=== PATIENT | male | born 1970 | race Caucasian/White ===

== ENCOUNTER 2023-03-24 12:45 | Inpatient (IN) | payer MEDICAID, SELFPAY ==
[2023-03-24 12:48] VITALS: BP 125/76; PULSE 99; RESP 18; TEMP 36.8; O2SAT 92; BMI 26.4
[2023-03-24 13:35] LABS: Basophils # 0.1 10^3/uL (0.0-0.1); Basophils % 0.8 %; Eosinophils # 0.1 10^3/uL (0.0-0.8); Eosinophils % 0.8 %; Hematocrit 35.4 % (37-53); Lymphocytes # 0.9 10^3/uL (0.8-4.8); Lymphocytes % 12.4 %; Mean Corpuscular HGB Conc 33.6 g/dL (30-55); Mean Corpuscular Hemoglobin 35.8 pg (27-33); Mean Corpuscular Volume 106.6 fl (82-101); Mean Platelet Volume 9.2 fL (7.4-10.4); Monocytes # 0.9 10^3/uL (0.2-0.9); Monocytes % 11.9 %; Neutrophils # 5.51 10^3/uL (1.8-7.7); Neutrophils % 73.8 %; Nucleated Red Blood Cells % 0 %; Platelet Count 125 10^3/cmm (157-399); Red Blood Count 3.32 10^6/uL (3.85-5.65); White Blood Count 7.47 10^3/uL (3.29-11.43)
--- NOTE | 2023-03-24 13:38 | PC.PHAR ---
CAREGIVER HAS MED LIST FROM HOSPITAL DISCHARGE IN [place]. PT HAS TAKEN IS MEDS TODAY. 03/24/23
--- NOTE | 2023-03-24 13:49 | ED_ITS ---
HPI - Weakness 2 General: Chief complaint: Weakness Stated complaint: leg pain, yellow skin Time Seen by Provider: 03/24/23 13:04 Source: patient Mode of arrival: ambulatory Limitations: no limitations History of Present Illness: 53-year-old male with a history of chron ic alcoholism states he was diagnosed with severe cirrhosis in [place] last week family states that they went and picked him up from [place] to take care of him they state that he has had increasing weakness and that they are not really able to care for him and try to get him placed in a long-term he states that he feels like he is getting more jaundiced and just more weak denies any specific pain denies any vomiting or diarrhea Associated symptoms: Denies chest pain, chills, fever(s), headache(s), nausea or vomiting Review of Systems 2 Const: Reports: fatigue and malaise; Denies: fever(s), chills or body aches ENMT: Denies: throat pain or dental pain Card: Denies: chest pain Resp: Denies: dyspnea GI: Denies: abdominal pain, nausea, vomiting or diarrhea Musc: Denies: neck pain or back pain Skin/Breast: Denies: rash Neuro: Denies: headache(s) Physical Exam 2 Const: COMMON NORMALS: no acute distress, patient oriented x3 and healthy appearing HENMT: COMMON NORMALS: normocephalic and atraumatic HEAD & SCALP: n ormocephalic and atraumatic Eye: COMMON NORMALS: Equal, round and reactive pupils present and EOMs intact bilaterally PUPIL: Yes Equal, round and reactive pupils present Neck/C-Spine: COMMON NORMALS: full ROM and supple Chest: COMMONS NORMALS: normal inspection of the chest and normal palpation of entire chest wall Resp: COMMON NORMALS: normal respiratory effort, No retractions, No use of accessory muscles and clear to auscultation bilaterally AUSCULTATION: clear to auscultation bilaterally Cardio: COMMON NORMALS: regular rate, regular rhythm and No murmurs present (Cardio) RATE: regular rate RHYTHM: regular rhythm GI: COMMON NORMALS: Normal to inspection, nondistended, normoactive bowel sounds present, Soft to palpation, non-tender and no masses PALPATION: Yes Soft to palpation Extremity: COMMON NORMALS: normal to inspection and full ROM Neuro: COMMON NORMALS: patient oriented x3, moves all extremities and no focal motor deficits Psych: COMMON NORMALS: mental status grossly normal, Normal thought process present and cooperative THOUGHT PROCESS: Normal thought process present Skin: COMMON NORMALS: no rashes or lesions noted and no wounds GENERAL SKIN EXAM: no rashes or lesions noted Course 2 Vital Signs: Vital signs: Vital Signs Temperature 98.3 F 03/24/23 12:48 Pulse Rate 99 03/24/23 12:48 Respiratory Rate 18 03/24/23 12:48 Blood Pressure 125/76 03/24/23 12:48 Pulse Oximetry 92 03/24/23 12:48 Oxygen Delivery Me thod Room Air 03/24/23 12:48 MDM - Weakness Medical Decision Making Patient presents here with cirrhosis he also has elevated ammonia he has had weakness could be from his hepatic encephalopathy family is wanting long-term placement as well I did speak to hospitalist will admit medically due to the elevated ammonia he stable here otherwise. No renal failure. Medical Records I reviewed the patient's medical records. Lab Data I reviewed the patient's lab results. 03/24/23 13:25 03/24/23 13:25 Laboratory Results WBC 7.47 10^3/uL (3.29-11.43) 03/24/23 13:25 RBC 3.32 10^6/uL (3.85-5.65) L 03/24/23 13:25 Hgb 11.90 g/dL (11.27-16.99) 03/24/23 13:25 Hct 35.4 % (37-53) L 03/24/23 13:25 MCV 106.6 fl (82-101) H 03/24/23 13:25 MCH 35.8 pg (27-33) H 03/24/23 13:25 MCHC 33.6 g/dL (30-55) 03/24/23 13:25 RDW 18.0 % (12.1-15.1) H 03/24/23 13:25 Plt Count 125 10^3/cmm (157-399) L 03/24/23 13:25 MPV 9.2 fL (7.4-10.4) 03/24/23 13:25 Neut % (Auto) 73.8 % 03/24/23 13:25 Lymph % (Auto) 12.4 % 03/24/23 13:25 [place] % (Auto) 11.9 % 03/24/23 13:25 Eos % (Auto) 0.8 % 03/24/23 13:25 Baso % (Auto) 0.8 % 03/24/23 13:25 Neut # (Auto) 5.51 10^3/uL (1.8-7.7) 03/24/23 13:25 Lymph # (Auto) 0.9 10^3/uL (0.8-4.8) 03/24/23 13:25 [place] # (Auto) 0.9 10^3/uL (0.2-0.9) 03/24/23 13:25 Eos # (Auto) 0.1 10^3/uL (0.0-0.8) 03/24/23 13:25 Baso # (Auto) 0.1 10^3/uL (0.0-0.1) 03/24/23 13:25 Nucleated RBC % (auto) 0 % 03/24/23 13:25 Nucleated RBCs # 0.0 /100WBC 03/24/23 13:25 Sodium 134 mmol/L (136-145) L 03/24/23 13:25 Potassium 3.8 mmol/L (3.5-5.1) 03/24/23 13:25 Chloride 97 mmol/L (98-107) L 03/24/23 13:25 Carbon Dioxide 23 mmol/L (22-29) 03/24/23 13:25 Anion Gap 17.8 (5-19) 03/24/23 13:25 BUN 18 mg/dL (6-20) 03/24/23 13:25 Creatinine 0.8 mg/dL (0.7-1.2) 03/24/23 13:25 GFR Calculation 101.1 mL/min (90-130) 03/24/23 13:25 Glucose 123 mg/dL (65-115) H 03/24/23 13:25 Calculated Osmolality 281 mOsm/kg (285-295) L 03/24/23 13:25 Calcium 8.6 mg/dL (8.5-10.5) 03/24/23 13:25 Total Bilirubin 6.6 mg/dL (0.15-1.2) H 03/24/23 13:25 AST 94 U/L (0-40) H 03/24/23 13:25 ALT 39 U/L (0-41) 03/24/23 13:25 Alkaline Phosphatase 87 U/L (40-130) 03/24/23 13:25 Ammonia 170 umol/L (16-60) H 03/24/23 13:25 Total Protein 6.7 g/dL (6.6-8.7) 03/24/23 13:25 Albumin 3.4 g/dL (3.5-5.2) L 03/24/23 13:25 Globulin 3.3 g/dL (1.3-4.6) 03/24/23 13:25 Lipase 75 U/L (13-60) H 03/24/23 13:25 Urine Color [place] (Yellow) A 03/24/23 13:05 Urine Appearance Clear (CLEAR) 03/24/23 13:05 Urine pH 5 (5-7) 03/24/23 13:05 Ur Specific [place] 1.005 (1.005-1.030) 03/24/23 13:05 Urine Protein 1+ (Negative) H 03/24/23 13:05 Urine Glucose (UA) Norm (Normal) 03/24/23 13:05 Urine Ketones 1+ (Negative) H 03/24/23 13:05 Urine Blood Neg (Negative) 03/24/23 13:05 Urine Nitrate Positive (Negative) H 03/24/23 13:05 Urine Bilirubin 2+ (Negative) H 03/24/23 13:05 Urine Urobilinogen 4+ mg/dL (Negative) H 03/24/23 13:05 Ur Leukocyte Esterase Trace (Negative) H 03/24/23 13:05 Urine RBC 0-4 /hpf (0-2) H 03/24/23 13:05 Urine WBC 0-4 /hpf (0-5) H 03/24/23 13:05 Ur Squamous Epith Cells 0-4 /hpf (0-5) H 03/24/23 13:05 Amorphous Sediment Not Reportable 03/24/23 13:05 Urine Bacteria Trace /hpf (NONE) 03/24/23 13:05 Urine Mucus Trace /hpf 03/24/23 13:05 No radiology studies performed this visit Discharge Plan Discharge Patient Disposition: Admitted As Inpatient Clinical Impression: Cirrhosis, Acute hepatic encephalopathy Condition: Stable Prescriptions: No Action multivitamin Tablet 1 tab PO DAILY furosemide 40 mg Tablet 40 mg PO DAILY spironolactone 100 mg Tablet 100 mg PO DAILY midodrine 5 mg Tablet 5 mg PO BID Rx Instructions: do not give last dose of day after 6PM or within 4 hrs of bedtime folic acid 1 mg Tablet 1 mg PO QAM thiamine HCl (vitamin B1) 50 mg Tablet 50 mg PO DAILY oxycodone 5 mg Tablet 5 mg PO Q8H PRN (Reason: Pain) lactulose 10 gram/15 mL Solution 15 ml PO BID PRN (Reason: Constipation) Coding Level of Care Code ED Statistical Developer for Yanet Montes
[2023-03-24 13:51] LABS: Alanine Aminotransferase 39 U/L (0-41); Albumin Level 3.4 g/dL (3.5-5.2); Alkaline Phosphatase 87 U/L (40-130); Anion Gap 17.8 (5-19); Aspartate Amino Transferase 94 U/L (0-40); Blood Urea Nitrogen 18 mg/dL (6-20); Calcium 8.6 mg/dL (8.5-10.5); Carbon Dioxide 23 mmol/L (22-29); Chloride 97 mmol/L (98-107); Globulin 3.3 g/dL (1.3-4.6); Glomerular Filtration Rate 101.1 mL/min (90-130); Glucose 123 mg/dL (65-115); Lipase 75 U/L (13-60); Osmolality Calculated 281 mOsm/kg (285-295); Potassium 3.8 mmol/L (3.5-5.1); Sodium 134 mmol/L (136-145); Total Bilirubin 6.6 mg/dL (0.15-1.2); Total Protein 6.7 g/dL (6.6-8.7)
[2023-03-24 13:55] LABS: Ammonia 170 umol/L (16-60)
[2023-03-24 14:06] LABS: Specific Gravity, Urine 1.005 (1.005-1.030); Urine Appearance Clear (CLEAR); Urine Color Orange (Yellow); pH Urine 5 (5-7)
[2023-03-24 14:07] LABS: Add Urine Microscopic? YES; Bilirubin Urine 2+ (Negative); Blood Urine Neg (Negative); Glucose Urine UA Norm (Normal); Ketones Urine 1+ (Negative); Leukocyte Esterase Urine Trace (Negative); Nitrate Urine Positive (Negative); Protein Urine 1+ (Negative); Urobilinogen Urine 4+ mg/dL (Negative)
[2023-03-24 14:09] LABS: Add Urine Culture? No; Bacteria Urine TRACE /hpf; Mucus Urine TRACE /hpf; RBC Urine 0-4 /hpf (0-2); Squamous Epithelial Cell Urine 0-4 /hpf (0-5); WBC Urine 0-4 /hpf (0-5)
--- NOTE | 2023-03-24 14:43 | PC.SOCIAL ---
Faxed [facility] DR Bautista asked that Cm follow up with pt & family that pt wants to go to a snf. [employer] followed up with pt & his sister Milady. She said they have already talked to [facility] & are willing to private pay. A choice letter filled out & placed in chart. Faxed ER note to [facility] & called & left a message on Hollie's voicemail updating her of the referral & that pt is wanting to come today. Asked that she call the ER back to let them know if they can accept.
--- NOTE | 2023-03-24 14:46 | P.HP_ITS ---
Providers/Chief Complaint 2 Chief Complaint: leg pain, yellow skin History of Present Illness Mariano Polanco is a 53 year old male who has recently moved from [place] to [place] 2 days ago with his sister, history is not able to take care of him, patient is very fatigued not cardiac, as per the sister there was no signs of SBP at the [facility], they drained roughly 1.5 L, patient's last alcoholic drink was roughly 7 days ago, he used to drink 6-12 beers daily, he has been diagnosed with liver cirrhosis he was discharged on lactulose folic acid Lasix and spironolactone, patient has not been taking his medications. Sister is struggling to take care of him because of his worsening of condition and confusion. No recent chest pain shortness of breath or fever. Patient is not vaccinated for COVID-19. He is full code. Signs of hepatic encephalopathy present, flapping tremors/asterixis positive, ammonia level is high, MELD score is high as well patient is jaundiced Review of Systems 2 Const: Denies: fever(s) Eyes: Denies: change in vision ENMT: Denies: throat pain Card: Denies: chest pain Resp: Denies: dyspnea GI: Reports: nausea : Denies: flank pain Musc: Denies: neck pain Skin/Breast: Reports: rash and changes in skin color Medications/Allergies Home Medications Medication Instructions Recorded Confirmed Last Taken Type folic acid 1 mg tablet 1 mg PO QAM 03/24/23 03/24/23 03/24/23 History furosemide 40 mg tablet 40 mg PO DAILY 03/24/23 03/24/23 03/24/23 History lactulose 10 gram/15 mL oral 15 ml PO BID PRN Constipation 03/24/23 03/24/23 Unknown History solution midodrine 5 mg tablet 5 mg PO BID 03/24/23 03/24/23 03/24/23 History multivitamin 1 tab PO DAILY 03/24/23 03/24/23 03/24/23 History oxycodone 5 mg tablet 5 mg PO Q8H PRN Pain 03/24/23 03/24/23 Unknown History spironolactone 100 mg tablet 100 mg PO DAILY 03/24/23 03/24/23 03/24/23 History thiamine HCl (vitamin B1) 50 mg 50 mg PO DAILY 03/24/23 03/24/2324 History tablet Allergies Allergy/AdvReac Type Severity Reaction Status Date / Time No Known Allergies Allergy Verified 03/24/23 12:57 PFSH Acute 2 PFSH: Medical History Alcoholic cirrhosis Vitals/I&O/Wt Last Vital Signs Temp 98.3 F 03/24/23 12:48 Pulse 99 03/24/23 12:48 Resp 18 03/24/23 12:48 BP 125/76 03/24/23 12:48 Pulse Ox 92 03/24/23 12:48 O2 Del Method Room Air 03/24/23 12:48 Weight last 48 hrs Weight 86.183 kg Physical Exam 2 Narrative: Patient is jaundiced Ascites Prominent veins Anasarca GCS 15 Currently on room air No active chest pain Currently doing well on room air Sisters at the bedside Asterixis positive Nonfocal neuroexam Data 03/24/23 13:25 03/24/23 13:25 A&P Assessment and plan (1) Cirrhosis: (2) Acute hepatic encephalopathy: Plan Acute hepatic encephalopathy Lactulose and rifaximin Start ceftriaxone 2 g daily Protonix Will request general surgery to see if patient could get a peritoneal drain He is not a candidate for TIPS procedure as of now his last alcoholic drink was a week ago He will need hepatic transplant evaluation once he has alcoholic abstinence for roughly 6 months Will need referral to [facility] at the time of discharge, most likely patient will need retirement placement considering his weakness Low-sodium diet Will give him albumin as well Continue Lasix and spironolactone along midodrine MELD score 16.2 I do not have his PT/INR will request coagulation profile Full code Related diet DVT prophylaxis heparin Attestations 2 Medical Necessity Statement*: Anticipating more than 2 midnights Diagnoses Cirrhosis K74.60 Acute hepatic encephalopathy K76.82
--- NOTE | 2023-03-24 15:04 | PC.SOCIAL ---
[facility] Pending... Arash Tried to follow up with Hollie at [facility] to see if they have review pt's referral. She was not available. Left a message with Klaudia. That pt is ready to d/c if they can accept. She said she will have Hollie follow up with the ER.
[2023-03-24 16:12] VITALS: BP 112/70; O2SAT 94
--- NOTE | 2023-03-24 16:13 | PC.NURSE ---
report called to Rajani on Med-Surg, no further questions at time of report.
[2023-03-24 16:20] LABS: Platelet Count 125 10^3/cmm (157-399)
[2023-03-24 16:25] LABS: Partial Thromboplastin Time 43.5 SECONDS (23.9-36.7)
[2023-03-24 16:26] LABS: Fibrinogen 154 mg/dL (174-498)
--- NOTE | 2023-03-24 16:39 | USCV_ITS ---
Mariano Polanco Age: 53 Gender: M : 1970 Exam Date: 03/24/2023 17:03 Ordering Phys: Gagan Lopez MD Technologist: CT Exam Location: [facility] [place] Indication: BP: 138 / 85 HR: 87 Rhythm: Sinus Technical Quality: Adequate MEASUREMENTS (Male / Female) Normal Values 2D ECHO LV Chamber Size 5.0 cm RV Chamber Size 4.1 cm LVOT Diameter 2.2 cm LV Ejection Fraction MOD 2C 58.0 % LV Ejection Fraction 2C AL 60.7 % LA Diameter 3.4 cm LA Width 4.6 cm LA Height 5.9 cm RA Width 4.3 cm RA Height 5.6 cm M-MODE Aortic Annulus Diameter 3.2 cm LA Ao Ratio MM 1.2 MV E Point Septal Separation 1.1 cm DOPPLER AV Peak Velocity 208.0 cm/s LVOT Peak Velocity 125.0 cm/s AV Area Cont Eq vti 2.6 cm squared AV Area Cont Eq pk 2.2 cm squared MV E' Velocity 11.0 cm/s TV Peak E Velocity 77.0 cm/s Right Atrial Pressure 3.0 mmHg PV Peak Velocity 156.0 cm/s FINDINGS Left Ventricle Left ventricle is normal in size. LV systolic function is normal with EF of 55-60%. Septal motion is consistent with conduction abnormality. Grade 1 diastolic dysfunction Right Ventricle Normal in size and function Right Atrium Normal in size Left Atrium Dilated Mitral Valve Structurally normal mitral valve. Mild mitral regurgitation. Aortic Valve Structurally normal aortic valve. No significant stenosis or regurgitation seen. Tricuspid Valve Mild tricuspid regurgitation. Pulmonic Valve Not well visualized Pericardium Normal Aorta Not well visualized IVC Not well visualized CONCLUSIONS LV systolic function is normal with EF 55 to 60%. Grade 1 diastolic dysfunction. Left atrial dilation. Mild mitral regurgitation. Mild tricuspid regurgitation. No comparison studies are available. Shiraz Rodriguez MD (Electronically Signed) Final Date: 25 March 2023 17:06 S
[2023-03-24] MEDS: midodrine 5 mg TABLET PO (17:53)
[2023-03-24] MEDS: pantoprazole 40 mg SDV IVP (17:53)
[2023-03-24] MEDS: heparin 5,000 unit/mL INJ 1 mL 5000 UNIT SUBCUT (17:53)
[2023-03-24 17:54] VITALS: RESP 16
[2023-03-24] MEDS: albumin 12.5 GM/250 ML VIAL IV (17:54)
[2023-03-24] MEDS: oxyCODONE 5 mg IR Tab/Cap PO (17:54)
[2023-03-24 18:02] VITALS: BMI 32.1
[2023-03-24 18:34] LABS: Thyroid Stimulating Hormone 3.14 uIU/mL (0.27-4.20)
[2023-03-24 20:00] VITALS: BP 105/66; PULSE 86; RESP 16; TEMP 36.8; O2SAT 93
[2023-03-24 23:53] VITALS: BP 110/70; PULSE 93; RESP 16; TEMP 37; O2SAT 92
[2023-03-25] VITALS (9 sets, daily range): BP systolic 107–131; BP diastolic 63–75; PULSE 80–92; RESP 14–17; TEMP 36.5–36.9; O2SAT 92–97; BMI 33.0
[2023-03-25] MEDS: heparin 5,000 unit/mL INJ 1 mL 5000 UNIT SUBCUT (04:08)
[2023-03-25 04:35] LABS: Basophils # 0.1 10^3/uL (0.0-0.1); Basophils % 0.9 %; Eosinophils # 0.2 10^3/uL (0.0-0.8); Eosinophils % 3.6 %; Hematocrit 32.9 % (37-53); Lymphocytes # 1.2 10^3/uL (0.8-4.8); Lymphocytes % 21.3 %; Mean Corpuscular Hemoglobin 35.8 pg (27-33); Mean Corpuscular Volume 105.1 fl (82-101); Mean Platelet Volume 9.5 fL (7.4-10.4); Monocytes # 0.8 10^3/uL (0.2-0.9); Monocytes % 14.3 %; Neutrophils # 3.33 10^3/uL (1.8-7.7); Neutrophils % 59.5 %; Nucleated Red Blood Cells % 0 %; Platelet Count 142 10^3/cmm (157-399); Red Blood Count 3.13 10^6/uL (3.85-5.65); Red Cell Distribution Width 18.4 % (12.1-15.1); White Blood Count 5.59 10^3/uL (3.29-11.43)
[2023-03-25 04:50] LABS: Alanine Aminotransferase 41 U/L (0-41); Albumin Level 3.3 g/dL (3.5-5.2); Alkaline Phosphatase 100 U/L (40-130); Anion Gap 15.8 (5-19); Aspartate Amino Transferase 96 U/L (0-40); Blood Urea Nitrogen 19 mg/dL (6-20); Calcium 8.6 mg/dL (8.5-10.5); Carbon Dioxide 24 mmol/L (22-29); Chloride 101 mmol/L (98-107); Glucose 111 mg/dL (65-115); Magnesium 1.9 mg/dL (1.7-2.3); Osmolality Calculated 287 mOsm/kg (285-295); Potassium 3.8 mmol/L (3.5-5.1); Sodium 137 mmol/L (136-145); Total Bilirubin 6.2 mg/dL (0.15-1.2); Total Protein 6.3 g/dL (6.6-8.7)
--- NOTE | 2023-03-25 07:48 | PC.NURSE ---
Patient only had 175 ml dark olu urine output last night, however he is also taking in very little PO. Dr. Lopez notified.
--- NOTE | 2023-03-25 09:50 | US_ITS ---
WS: [id number] INDICATION: Paracentesis TECHNIQUE: Ultrasound abdomen FINDINGS: Ultrasound abdomen demonstrates mild perihepatic ascites RIGHT upper quadrant about the [facility]. Minimal fluid LEFT lower quadrant. Insufficient fluid for paracentesis IMPRESSION: Insufficient fluid for paracentesis
[2023-03-25] MEDS: pantoprazole 40 mg SDV IVP ×2 (10:16→17:52)
[2023-03-25] MEDS: spironolactone 25 mg Tablet 100 MG PO (10:17)
[2023-03-25] MEDS: thiamine 100 mg Tablet PO (10:17)
[2023-03-25] MEDS: folic acid 1 mg Tablet PO (10:17)
[2023-03-25] MEDS: FUROsemide 40 mg Tablet PO (10:17)
[2023-03-25] MEDS: midodrine 5 mg TABLET PO ×2 (10:18→17:52)
[2023-03-25] MEDS: oxyCODONE 5 mg IR Tab/Cap PO ×2 (10:30→19:28)
--- NOTE | 2023-03-25 11:34 | P.CONIM_ITS ---
Providers/Reason For Consult 2 Consulting Physician/Specialty*: Dr. Saurabh Fregoso, DO/General surgery Reason for Consult*: Abdominal distention/ascites Attending Physician: Gagan Lopez MD History of Present Illness History of Present Illness Mariano Polanco is a 53 year old male, with known alcoholic liver cirrhosis, who is currently in the hospital with acute hepatic encephalopathy. HPI and review of systems are limited secondary to patient's encephalopathy. He reports that he has no pain but is not oriented to place. General surgery was consulted for possible peritoneal drainage catheter placement. Review of Systems 2 General: Reports: ROS unobtainable due to mental status Medications/Allergies Home Medications Medication Instructions Recorded Confirmed Last Taken Type folic acid 1 mg tablet 1 mg PO QAM 03/24/23 03/24/23 03/24/23 History furosemide 40 mg tablet 40 mg PO DAILY 03/24/23 03/24/23 03/24/23 History lactulose 10 gram/15 mL oral 15 ml PO BID PRN Constipation 03/24/23 03/24/23 Unknown History solution midodrine 5 mg tablet 5 mg PO BID 03/24/23 03/24/23 03/24/23 History multivitamin 1 tab PO DAILY 03/24/23 03/24/23 03/24/23 History oxycodone 5 mg tablet 5 mg PO Q8H PRN Pain 03/24/23 03/24/23 Unknown History spironolactone 100 mg tablet 100 mg PO DAILY 03/24/23 03/24/23 03/24/23 History thiamine HCl (vitamin B1) 50 mg 50 mg PO DAILY 03/24/23 03/24/23 03/24/23 History tablet Allergies Allergy/AdvReac Type Severity Reaction Status Date / Time No Known Allergies Allergy Verified 03/24/23 12:57 Current Medications Generic Name Dose Route Start Last Admin Trade Name Freq PRN Reason Stop Dose Admin Folic Acid 1 mg 03/25/23 09:00 03/26/23 08:42 Folic Acid 1 Mg Tablet PO 1 mg DAILY EDIE Administration Furosemide 40 mg 03/25/23 09:00 03/26/23 08:42 Furosemide 40 Mg Tablet PO 40 mg DAILY EDIE Administration Heparin Sodium (Porcine) 5,000 unit 03/24/23 16:39 03/25/23 04:08 Heparin 5,000 Unit/Ml Inj 1 Ml SUBCUT 5,000 unit Q12H EDIE Administration Ceftriaxone Sodium 2,000 mg/ 50 mls @ 100 mls/hr 03/25/23 11:15 03/26/23 11:13 Sodium Chloride IV Infused DAILY EDIE Infusion Protocol Midodrine 5 mg 03/24/23 18:00 03/26/23 10:21 Midodrine 5 Mg Tablet PO 5 mg BID EDIE Administration Oxycodone HCl 5 mg 03/24/23 16:39 03/26/23 06:16 Oxycodone 5 Mg Ir Tab/Cap PO 5 mg Q8H PRN Administration Pain Pantoprazole Sodium 40 mg 03/24/23 18:00 03/26/23 09:08 Pantoprazole 40 Mg Sdv IVP 40 mg BID EDIE Administration Prednisone 15 mg 03/26/23 09:00 03/26/23 08:42 Prednisolone 15 Mg/5 Ml Syringe PO 15 mg TID EDIE Administration Spironolactone 100 mg 03/25/23 09:00 03/26/23 08:43 Spironolactone 25 Mg Tablet PO 100 mg DAILY EDIE Administration Thiamine Mononitrate 100 mg 03/25/23 09:00 03/26/23 08:43 Thiamine 100 Mg Tablet PO 100 mg DAILY EDIE Administration PFSH Acute 2 PFSH: Medical History Alcoholic cirrhosis Vitals/I&O/Wt Last Vital Signs Temp 97.8 F 03/26/23 11:15 Pulse 91 03/26/23 11:15 Resp 16 03/26/23 11:15 BP 119/72 03/26/23 11:15 Pulse Ox 94 03/26/23 11:15 O2 Del Method Room Air 03/26/23 11:15 03/25/23 03/26/23 03/26/23 22:59 06:59 14:59 Intake Total 480 / 530 170 / 170 Output Total 200 / 200 125 / 325 Balance -200 / -150 355 / 205 170 / 170 Weight last 48 hrs Weight 257 lb 9.6 oz Weight 250 lb 6 oz Weight 190 lb Physical Exam 2 Narrative: General : Patient is well developed , no acute distress, oriented only to person and time Head : Normal cephalic, a-traumatic. Ears : Pinnae and external canal are normal. Hearing is normal. Eyes : PERRLA, Sclera and injection are normal. No conjunctival discharge. Nose : Mucous membranes are without erythema. Throat : buccal mucosa is normal, gums are without significant recession or hypertrophy. Lungs : Equal chest rise bilaterally, no use of accessory muscles, trachea is midline. Cor : Rate and rhythm are normal. Abdomen : Soft, marked distention, NT, no g/r/m Extremities : Minimal edema, no cyanosis or clubbing, dorsalis pedis pulses are present bilaterally, non-tender to palpation of calves. Upper extremities are normal bilaterally. Back : non-tender to palpation, no CVA tenderness. Neuro : CN II - XII intact, Upper and lower extremities have equal and full strength Data 03/26/23 05:32 03/26/23 05:32 A&P Assessment and plan (1) Acute hepatic encephalopathy: (2) Cirrhosis: Plan I recommend requesting paracentesis from radiology. I will be happy to place a peritoneal drainage catheter, if needed, after he has recovered medically from his acute withdrawal and encephalopathy. Medical management per hospitalist Coding Level of Care Code 14550 Diagnoses Acute hepatic encephalopathy K76.82 Cirrhosis K74.60
[2023-03-25] MEDS: cefTRIAXone 2,000 MG in sodium chloride 0.9% (plus) 50 ML 100 MG IV (11:39)
--- NOTE | 2023-03-25 11:39 | P.PN_ITS ---
Subjective 2 Subjective: MELD score is 22 Patient is not confused this morning We are holding off on peritoneal drain placement for now considering significant abdominal distention Will get paracentesis Requested records from outside facility Vitals/I&O/Wt Last Vital Signs Temp 98.0 F 03/25/23 07:47 Pulse 89 03/25/23 07:47 Resp 16 03/25/23 10:30 BP 112/66 03/25/23 07:47 Pulse Ox 92 03/25/23 07:47 O2 Del Method Room Air 03/25/23 07:47 03/24/23 03/25/23 03/25/23 22:59 06:59 14:59 Intake Total 250 / 250 50 / 300 Output Total 175 / 175 Balance 250 / 250 -125 / 125 Weight last 48 hrs Weight 116.845 kg Weight 113.568 kg Weight 86.183 kg Physical Exam 2 Narrative: Asterixis Abdominal distention No abdominal pain Currently on room air Pleasant and cooperative GCS 15 No active signs of hallucination or withdrawal S1, S2 Data 03/25/23 03:59 03/25/23 03:59 A&P Assessment and plan (1) Cirrhosis: (2) Acute hepatic encephalopathy: Plan MELD score is 22 Not a TIPS candidate We are holding off on peritoneal drain Will request therapeutic paracentesis Continue ceftriaxone Continue spironolactone Lasix No signs of hepatorenal syndrome Full code Will request records from outside facility INR 1.7 Sodium 137 Patient will need long-term placement extremely weak and lethargic Attestations 2 Medical Necessity Statement*: Continue medical management Diagnoses Cirrhosis K74.60 Acute hepatic encephalopathy K76.82
--- NOTE | 2023-03-25 13:06 | CT_ITS ---
WS: [id number] CT ABDOMEN AND PELVIS NONCONTRAST HISTORY: ascites TECHNIQUE: Imaging performed through the abdomen and pelvis. Coronal and sagittal reformats are submi tted. All CT scans at [facility] use at least one of these dose optimization techniques: auto mated exposure control; mA and/or kV adjustment per patient size (includes targeted exams where dose is matched to clinical indication); or iterative reconstruction. DLP: 1124.23 mGy.cm COMPARISON: None available. Lower thorax: Bibasilar areas of atelectasis. No pneumonia. Liver: Severe hepatic steatosis and mild hepatomegaly. No bile duct dilatation. There is variable den sity throughout the liver suggesting hepatic congestion. Gallbladder: Stones layering within the gallbladder lumen. No pericholecystic fluid. No obstruction. Pancreas: Normal size and attenuation. Normal pancreatic duct. No pancreatitis or mass. Spleen: Normal. Adrenal glands: Normal. No mass. Right kidney: Normal size kidney with no mass or hydronephrosis. Left kidney: Normal size kidney with no mass or hydronephrosis. Aorta: Normal abdominal aorta, no aneurysm or atherosclerosis. There is a small amount of fluid adjacent to the liver and spleen. Minimal fluid along the paracolic gutters. GI tract: Stomach is nondistended. There is a small amount of fluid in the small bowel loops. Marked distention of the colon with air. Postsurgical anastomotic sutures are noted in the RIGHT lower quadr ant. There is a mildly patulous dilated loop of colon but no obstruction. There are no prior studies for comparison to evaluate for interval change. Abdominal wall: Mild soft tissue anasarca. LEFT lateral abdominal wall hernia with 6 bulging of oment um. Pelvis: Minimal fluid in the pelvis. Nondistended bladder. Osseous structures: Severe degenerative dystrophic changes involving the LEFT hip. IMPRESSION: 1. Small amount of abdominal ascites adjacent to the liver and spleen. Insufficient for paracentesis . 2. Mild fluid and air distention of the GI tract. There is a patulous loop of GI tract in the LEFT l ower quadrant. At this time there is no obvious obstruction. For additional evaluation CT may need to be done with IV and oral contrast. 3. No free air. 4. LEFT lateral abdominal wall omental hernia. 5. Cholelithiasis. No acute cholecystitis. 6. Marked enlargement of the liver with heterogeneity and hepatic congestion.
[2023-03-26] VITALS (8 sets, daily range): BP systolic 111–133; BP diastolic 69–86; PULSE 71–106; RESP 16–20; TEMP 36.3–37.2; O2SAT 92–98
[2023-03-26 06:00] LABS: Basophils # 0.1 10^3/uL (0.0-0.1); Eosinophils # 0.2 10^3/uL (0.0-0.8); Eosinophils % 3.4 %; Lymphocytes # 1.3 10^3/uL (0.8-4.8); Lymphocytes % 18.7 %; Mean Corpuscular HGB Conc 34.1 g/dL (30-55); Mean Corpuscular Hemoglobin 36.3 pg (27-33); Mean Corpuscular Volume 106.3 fl (82-101); Mean Platelet Volume 9.2 fL (7.4-10.4); Monocytes # 0.9 10^3/uL (0.2-0.9); Neutrophils # 4.24 10^3/uL (1.8-7.7); Neutrophils % 63.5 %; Nucleated Red Blood Cells % 0 %; Platelet Count 147 10^3/cmm (157-399); Red Cell Distribution Width 19.1 % (12.1-15.1); White Blood Count 6.69 10^3/uL (3.29-11.43)
[2023-03-26] MEDS: oxyCODONE 5 mg IR Tab/Cap PO ×2 (06:16→21:27)
[2023-03-26 06:24] LABS: Anion Gap 16.9 (5-19); Blood Urea Nitrogen 22 mg/dL (6-20); Carbon Dioxide 24 mmol/L (22-29); Chloride 99 mmol/L (98-107); Glucose 110 mg/dL (65-115); Osmolality Calculated 286 mOsm/kg (285-295); Potassium 3.9 mmol/L (3.5-5.1); Sodium 136 mmol/L (136-145)
[2023-03-26 06:35] LABS: Calcium 8.8 mg/dL (8.5-10.5)
[2023-03-26] MEDS: cefTRIAXone 2,000 MG in sodium chloride 0.9% (plus) 50 ML 100 MG IV (08:37)
[2023-03-26 08:41] LABS: Alanine Aminotransferase 38 U/L (0-41); Albumin Level 3.1 g/dL (3.5-5.2); Alkaline Phosphatase 84 U/L (40-130); Aspartate Amino Transferase 90 U/L (0-40); Globulin 3.3 g/dL (1.3-4.6); Total Bilirubin 6.8 mg/dL (0.15-1.2); Total Protein 6.4 g/dL (6.6-8.7)
[2023-03-26] MEDS: folic acid 1 mg Tablet PO (08:42)
[2023-03-26] MEDS: prednisoLONE 15 MG/5 ML SYRINGE PO (08:42)
[2023-03-26] MEDS: FUROsemide 40 mg Tablet PO (08:42)
[2023-03-26] MEDS: spironolactone 25 mg Tablet 100 MG PO (08:43)
[2023-03-26] MEDS: thiamine 100 mg Tablet PO (08:43)
[2023-03-26] MEDS: pantoprazole 40 mg SDV IVP ×2 (09:08→17:26)
[2023-03-26] MEDS: midodrine 5 mg TABLET PO ×2 (10:21→17:26)
--- NOTE | 2023-03-26 11:42 | P.PN_ITS ---
Vitals/I&O/Wt Last Vital Signs Temp 97.8 F 03/26/23 11:15 Pulse 91 03/26/23 11:15 Resp 16 03/26/23 11:15 BP 119/72 03/26/23 11:15 Pulse Ox 94 03/26/23 11:15 O2 Del Method Room Air 03/26/23 11:15 03/25/23 03/26/23 03/26/23 22:59 06:59 14:59 Intake Total 480 / 530 170 / 170 Output Total 200 / 200 125 / 325 Balance -200 / -150 355 / 205 170 / 170 Weight last 48 hrs Weight 257 lb 9.6 oz Weight 250 lb 6 oz Weight 190 lb Physical Exam 2 Narrative: General: No acute distress, awake alert and oriented x 3 Abdomen: markedly distended, nontender, no guarding or rebound Data 03/26/23 05:32 03/26/23 05:32 A&P Assessment and plan (1) Acute hepatic encephalopathy: (2) Cirrhosis: Plan Abdominal CT shows minimal ascites, not amenable to paracentesis. No acute surgical intervention Medical management per hospitalist General surgery will sign off. Please reconsult if the need arises Attestations 2 Medical Necessity Statement*: Per primary Coding Level of Care Code 46914 Diagnoses Acute hepatic encephalopathy K76.82 Cirrhosis K74.60
--- NOTE | 2023-03-26 13:14 | P.PN_ITS ---
Subjective 2 Subjective: Patient is doing well Not drainable fluid noted on peritoneum No active pain afebrile Tolerating diet Awaiting placement No plan for peritoneal drain as of now Albumin 3.1 Echo shows preserved ejection fraction Vitals/I&O/Wt Last Vital Signs Temp 97.8 F 03/26/23 11:15 Pulse 91 03/26/23 11:15 Resp 16 03/26/23 11:15 BP 119/72 03/26/23 11:15 Pulse Ox 94 03/26/23 11:15 O2 Del Method Room Air 03/26/23 11:15 03/25/23 03/26/23 03/26/23 22:59 06:59 14:59 Intake Total 480 / 530 170 / 170 Output Total 200 / 200 125 / 325 Balance -200 / -150 355 / 205 170 / 170 Weight last 48 hrs Weight 116.845 kg Weight 113.568 kg Physical Exam 2 Narrative: Treatment DC Ascites Nontender abdomen Distended Awake and alert Asterixis negative Awake and alert x 3 GCS 15 Nonfocal neuroexam currently on room air Hemodynamically stable Data 03/26/23 05:32 03/26/23 05:32 A&P Assessment and plan (1) Cirrhosis: (2) Acute hepatic encephalopathy: Plan Hepatic encephalopathy: Improving Ascites Continue ceftriaxone, 2 g, spironolactone and Lasix Not enough fluid to be drained CT scan abdomen pelvis reviewed Patient is still jaundiced with MELD score above 20 He will need hepatology referral at the time of discharge Continue lactulose Cardiac diet Awaiting placement Continue thiamine folic acid Attestations 2 Medical Necessity Statement*: Waiting placement Diagnoses Cirrhosis K74.60 Acute hepatic encephalopathy K76.82
[2023-03-26] MEDS: lactulose oral liq 20 gm/30 mL UDC 30 GM PO ×2 (13:39→20:57)
[2023-03-26] MEDS: predniSONE 20 mg Tablet 40 MG PO (13:45)
[2023-03-27] VITALS (8 sets, daily range): BP systolic 121–145; BP diastolic 71–83; PULSE 94–101; RESP 15–18; TEMP 36.3–37.1; O2SAT 91–94; BMI 36.1
[2023-03-27 05:51] LABS: Basophils % 0.2 %; Hematocrit 34.6 % (37-53); Lymphocytes # 1.2 10^3/uL (0.8-4.8); Lymphocytes % 11.8 %; Mean Corpuscular HGB Conc 33.8 g/dL (30-55); Mean Corpuscular Hemoglobin 36.1 pg (27-33); Mean Corpuscular Volume 106.8 fl (82-101); Mean Platelet Volume 9.4 fL (7.4-10.4); Monocytes # 0.9 10^3/uL (0.2-0.9); Neutrophils # 7.77 10^3/uL (1.8-7.7); Neutrophils % 78.7 %; Nucleated Red Blood Cells % 0 %; Platelet Count 151 10^3/cmm (157-399); Red Blood Count 3.24 10^6/uL (3.85-5.65); Red Cell Distribution Width 18.6 % (12.1-15.1); White Blood Count 9.87 10^3/uL (3.29-11.43)
[2023-03-27] MEDS: oxyCODONE 5 mg IR Tab/Cap PO ×3 (06:03→23:01)
[2023-03-27 06:09] LABS: Alanine Aminotransferase 40 U/L (0-41); Albumin Level 3.2 g/dL (3.5-5.2); Alkaline Phosphatase 120 U/L (40-130); Anion Gap 15.6 (5-19); Aspartate Amino Transferase 74 U/L (0-40); Blood Urea Nitrogen 21 mg/dL (6-20); Calcium 8.8 mg/dL (8.5-10.5); Carbon Dioxide 24 mmol/L (22-29); Chloride 99 mmol/L (98-107); Globulin 3.7 g/dL (1.3-4.6); Glucose 121 mg/dL (65-115); Osmolality Calculated 284 mOsm/kg (285-295); Potassium 3.6 mmol/L (3.5-5.1); Sodium 135 mmol/L (136-145); Total Bilirubin 6.1 mg/dL (0.15-1.2); Total Protein 6.9 g/dL (6.6-8.7)
[2023-03-27] MEDS: cefTRIAXone 2,000 MG in sodium chloride 0.9% (plus) 50 ML 100 MG IV (09:00)
[2023-03-27] MEDS: pantoprazole 40 mg SDV IVP ×2 (09:02→17:48)
[2023-03-27] MEDS: thiamine 100 mg Tablet PO (09:05)
[2023-03-27] MEDS: lactulose oral liq 20 gm/30 mL UDC 30 GM PO ×4 (09:05→20:39)
[2023-03-27] MEDS: spironolactone 25 mg Tablet 100 MG PO (09:05)
[2023-03-27] MEDS: predniSONE 20 mg Tablet 40 MG PO (09:05)
[2023-03-27] MEDS: midodrine 5 mg TABLET PO ×2 (09:05→17:49)
[2023-03-27] MEDS: FUROsemide 40 mg Tablet PO (09:05)
[2023-03-27] MEDS: folic acid 1 mg Tablet PO (09:05)
--- NOTE | 2023-03-27 11:53 | P.PN_ITS ---
Subjective 2 Subjective: Records from other facility did not show anything other than alcohol related cirrhosis and ascites Patient is endorsing feeling slightly better He is not hungry to eat his breakfast Bilirubin 6.1 Stating that he had 1 small bowel movement yesterday Vitals/I&O/Wt Last Vital Signs Temp 98.3 F 03/27/23 08:09 Pulse 97 03/27/23 08:09 Resp 16 03/27/23 08:09 BP 121/74 03/27/23 08:09 Pulse Ox 92 03/27/23 08:09 O2 Del Method Room Air 03/27/23 08:09 03/26/23 03/27/23 03/27/23 22:59 06:59 14:59 Intake Total 60 / 230 50 / 50 Output Total 300 / 300 Balance -240 / -70 50 / 50 Weight last 48 hrs Weight 117.344 kg Physical Exam 2 Narrative: Awake and alert Abdomen distended Nontender Endorsing not feeling hungry Hemodynamic stable On room air No abdominal pain Lower extremity swelling Data 03/27/23 04:57 03/27/23 04:57 A&P Assessment and plan (1) Cirrhosis: (2) Acute hepatic encephalopathy: (3) Alcoholic hepatitis: Plan MELD score 22, Maddrey score 42 with poor prognostic signs Currently on steroids Plan to discharge by Wednesday Continue Lasix spironolactone Continue ceftriaxone Attestations 2 Medical Necessity Statement*: Discharge on Wednesday Diagnoses Cirrhosis K74.60 Acute hepatic encephalopathy K76.82 Alcoholic hepatitis K70.10
[2023-03-27] MEDS: methylPREDNISolone sod succ 125 mg/2 mL INJ 80 MG IVP ×2 (13:41→23:22)
[2023-03-27] MEDS: heparin 5,000 unit/mL INJ 1 mL 5000 UNIT SUBCUT (17:48)
[2023-03-28] VITALS (9 sets, daily range): BP systolic 120–152; BP diastolic 74–92; PULSE 101–111; RESP 16–18; TEMP 36.4–37.3; O2SAT 90–92; BMI 36.7
[2023-03-28] MEDS: heparin 5,000 unit/mL INJ 1 mL 5000 UNIT SUBCUT ×2 (03:37→16:23)
[2023-03-28 05:51] LABS: Albumin Level 3.2 g/dL (3.5-5.2); Alkaline Phosphatase 90 U/L (40-130); Blood Urea Nitrogen 22 mg/dL (6-20); Calcium 8.7 mg/dL (8.5-10.5); Carbon Dioxide 23 mmol/L (22-29); Chloride 97 mmol/L (98-107); Globulin 4.1 g/dL (1.3-4.6); Glomerular Filtration Rate 140.9 mL/min (90-130); Glucose 140 mg/dL (65-115); Osmolality Calculated 284 mOsm/kg (285-295); Sodium 134 mmol/L (136-145); Total Bilirubin 5.6 mg/dL (0.15-1.2); Total Protein 7.3 g/dL (6.6-8.7)
[2023-03-28 05:54] LABS: Alanine Aminotransferase 41 U/L (0-41); Anion Gap 17.7 (5-19); Aspartate Amino Transferase 78 U/L (0-40); Potassium 3.7 mmol/L (3.5-5.1)
[2023-03-28] MEDS: pantoprazole 40 mg SDV IVP ×2 (08:20→17:53)
[2023-03-28] MEDS: cefTRIAXone 2,000 MG in sodium chloride 0.9% (plus) 50 ML 100 MG IV (08:20)
[2023-03-28] MEDS: spironolactone 25 mg Tablet 100 MG PO (08:21)
[2023-03-28] MEDS: thiamine 100 mg Tablet PO (08:21)
[2023-03-28] MEDS: midodrine 5 mg TABLET PO ×2 (08:21→17:53)
[2023-03-28] MEDS: folic acid 1 mg Tablet PO (08:21)
[2023-03-28] MEDS: lactulose oral liq 20 gm/30 mL UDC 30 GM PO ×4 (08:22→20:34)
[2023-03-28] MEDS: FUROsemide 40 mg Tablet PO (08:22)
[2023-03-28] MEDS: methylPREDNISolone sod succ 125 mg/2 mL INJ 80 MG IVP ×2 (12:19→23:55)
--- NOTE | 2023-03-28 12:35 | PM.PN ---
Subjective Subjective: Bilirubin improving on steroids Afebrile Patient had a bowel movement yesterday Plan to discharge him on Wednesday to custodial Vitals/I&O/Wt Last Vital Signs Temp 98.0 F 03/28/23 11:02 Pulse 105 H 03/28/23 11:02 Resp 16 03/28/23 11:02 BP 130/77 03/28/23 11:02 Pulse Ox 91 03/28/23 11:02 O2 Del Method Room Air 03/28/23 11:02 03/27/23 03/28/23 03/28/23 22:59 06:59 14:59 Intake Total 640 / 890 240 / 240 Output Total 400 / 400 350 / 350 Balance 640 / 890 -400 / 490 -110 / -110 Weight last 48 hrs Weight 119.476 kg Weight 117.344 kg Physical Exam Narrative: No abdominal pain GCS 15 Asterixis negative Lethargic and fatigued ate 20% of his breakfast Nonfocal neuroexam Currently on room air Data 03/27/23 04:57 03/28/23 04:47 A&P Assessment and plan (1) Cirrhosis: (2) Acute hepatic encephalopathy: (3) Alcoholic hepatitis: Plan Will need long-term steroid taper bilirubin improving with steroids Plan to discharge on Wednesday to custodial Ready to be discharged Attestations Medical Necessity Statement*: Discharge tomorrowdc Diagnoses Cirrhosis K74.60 Acute hepatic encephalopathy K76.82 Alcoholic hepatitis K70.10
[2023-03-28] MEDS: oxyCODONE 5 mg IR Tab/Cap PO ×2 (16:26→23:54)
[2023-03-29 03:29] LABS: Alanine Aminotransferase 35 U/L (0-41); Albumin Level 3.2 g/dL (3.5-5.2); Alkaline Phosphatase 137 U/L (40-130); Aspartate Amino Transferase 56 U/L (0-40); Blood Urea Nitrogen 21 mg/dL (6-20); Calcium 9.2 mg/dL (8.5-10.5); Carbon Dioxide 23 mmol/L (22-29); Chloride 99 mmol/L (98-107); Globulin 3.9 g/dL (1.3-4.6); Glomerular Filtration Rate 101.1 mL/min (90-130); Glucose 136 mg/dL (65-115); Osmolality Calculated 287 mOsm/kg (285-295); Sodium 136 mmol/L (136-145); Total Bilirubin 5.1 mg/dL (0.15-1.2); Total Protein 7.1 g/dL (6.6-8.7)
[2023-03-29 03:36] VITALS: BP 115/73; PULSE 94; RESP 17; TEMP 36.6; O2SAT 92; BMI 35.7
[2023-03-29] MEDS: heparin 5,000 unit/mL INJ 1 mL 5000 UNIT SUBCUT (04:24)
[2023-03-29] MEDS: cefTRIAXone 2,000 MG in sodium chloride 0.9% (plus) 50 ML 100 MG IV (08:10)
[2023-03-29] MEDS: pantoprazole 40 mg SDV IVP (08:11)
[2023-03-29] MEDS: folic acid 1 mg Tablet PO (08:12)
[2023-03-29] MEDS: spironolactone 25 mg Tablet 100 MG PO (08:12)
[2023-03-29] MEDS: FUROsemide 40 mg Tablet PO (08:12)
[2023-03-29] MEDS: midodrine 5 mg TABLET PO (08:12)
[2023-03-29] MEDS: thiamine 100 mg Tablet PO (08:13)
[2023-03-29] MEDS: lactulose oral liq 20 gm/30 mL UDC 30 GM PO ×2 (08:13→13:20)
[2023-03-29 08:15] VITALS: RESP 16
[2023-03-29] MEDS: oxyCODONE 5 mg IR Tab/Cap PO (08:15)
[2023-03-29 08:27] VITALS: BP 127/75; PULSE 98; RESP 17; TEMP 36.3; O2SAT 92
--- NOTE | 2023-03-29 10:40 | P.DS_ITS ---
Discharge Providers Date of Admission: 03/24/23 16:03 Date of Discharge: March 29, 2023 Attending Provider at Admission: Gagan Lopez MD Attending Provider at Discharge: Gagan Lopez MD Diagnoses at Discharge Discharge Diagnosis (1) Cirrhosis: Status: Acute (2) Acute hepatic encephalopathy: Status: Acute (3) Alcoholic hepatitis: Status: Acute Reason for Visit Reason for Visit: leg pain, yellow skin Hospital Course Hospital Course 52 male who was admitted for management evaluation of alcoholic hepatitis, hepatic encephalopathy, [facility] moved from [place] to live with his sister, sister has requested custodial placement, patient was given steroids for alcohol induced hepatitis, MELD score is 24 and Madrey score above 42, I will give him referral to see a applied behavior specialist patient stopped drinking 10 days before his arrival in the hospital, abstinence of alcohol is recommended for at least 6 months before consideration of liver transplant, at the time of discharge I will give him a long steroid taper for alcoholic hepatitis along lactulose rifaximin he may continue Lasix and spironolactone dose, I requested paracentesis however CT abdomen pelvis and ultrasound did not show much loculation or drainage in the hospital he was later a poor candidate for TIPS considering high MELD score, with recurrent ascites peritoneal drain might be helpful in future Full code, He was kept on Lasix, spironolactone, ceftriaxone 2 g daily, hemoglobin remained stable he does have portal hypertension signs Physical Exam Narrative: Hepatic encephalopathy signs improving Abdomen less distended Nontender Discharge Data Studies Completed and Pending Completed Studies During Hospitalization Category Date Time Status CT abdomen pelvis wo con [id number] Routine Cat Scan 03/25/23 13:06 Completed CV. echo complete* [id number] Routine Ultrasound 03/24/23 16:39 Completed US abdomen lmt fluid [id number] Routine Ultrasound 03/25/23 09:50 Completed Pending at discharge Category Date Time Status Cyto Order Verification Routine Lab 03/25/23 09:51 Ordered Laboratory Results WBC 9.87 10^3/uL (3.29-11.43) 03/27/23 04:57 RBC 3.24 10^6/uL (3.85-5.65) L 03/27/23 04:57 Hgb 11.70 g/dL (11.27-16.99) 03/27/23 04:57 Hct 34.6 % (37-53) L 03/27/23 04:57 MCV 106.8 fl (82-101) H 03/27/23 04:57 MCH 36.1 pg (27-33) H 03/27/23 04:57 MCHC 33.8 g/dL (30-55) 03/27/23 04:57 RDW 18.6 % (12.1-15.1) H 03/27/23 04:57 Plt Count 151 10^3/cmm (157-399) L 03/27/23 04:57 MPV 9.4 fL (7.4-10.4) 03/27/23 04:57 Neut % (Auto) 78.7 % 03/27/23 04:57 Lymph % (Auto) 11.8 % 03/27/23 04:57 Morgan % (Auto) 9.0 % 03/27/23 04:57 Eos % (Auto) 0.0 % 03/27/23 04:57 Baso % (Auto) 0.2 % 03/27/23 04:57 Neut # (Auto) 7.77 10^3/uL (1.8-7.7) H 03/27/23 04:57 Lymph # (Auto) 1.2 10^3/uL (0.8-4.8) 03/27/23 04:57 Morgan # (Auto) 0.9 10^3/uL (0.2-0.9) 03/27/23 04:57 Eos # (Auto) 0.0 10^3/uL (0.0-0.8) 03/27/23 04:57 Baso # (Auto) 0.0 10^3/uL (0.0-0.1) 03/27/23 04:57 Nucleated RBC % (auto) 0 % 03/27/23 04:57 Nucleated RBCs # 0.0 /100WBC 03/27/23 04:57 PT 20.50 SECONDS (12.1-14.9) H 03/24/23 13:25 INR 1.70 (0.8-1.2) H 03/24/23 13:25 APTT 43.5 SECONDS (23.9-36.7) H 03/24/23 13:25 Fibrinogen 154 mg/dL (174-498) L 03/24/23 13:25 Sodium 136 mmol/L (136-145) 03/29/23 02:06 Potassium 3.0 mmol/L (3.5-5.1) L 03/29/23 02:06 Chloride 99 mmol/L (98-107) 03/29/23 02:06 Carbon Dioxide 23 mmol/L (22-29) 03/29/23 02:06 Anion Gap 17.0 (5-19) 03/29/23 02:06 BUN 21 mg/dL (6-20) H 03/29/23 02:06 Creatinine 0.8 mg/dL (0.7-1.2) 03/29/23 02:06 GFR Calculation 101.1 mL/min (90-130) 03/29/23 02:06 Glucose 136 mg/dL (65-115) H 03/29/23 02:06 Calculated Osmolality 287 mOsm/kg (285-295) 03/29/23 02:06 Calcium 9.2 mg/dL (8.5-10.5) 03/29/23 02:06 Magnesium 1.9 mg/dL (1.7-2.3) 03/25/23 03:59 Total Bilirubin 5.1 mg/dL (0.15-1.2) H 03/29/23 02:06 Direct Bilirubin 3.60 mg/dL (0.00-0.30) H 03/26/23 05:32 AST 56 U/L (0-40) H 03/29/23 02:06 ALT 35 U/L (0-41) 03/29/23 02:06 Alkaline Phosphatase 137 U/L (40-130) H 03/29/23 02:06 Ammonia 170 umol/L (16-60) H 03/24/23 13:25 Total Protein 7.1 g/dL (6.6-8.7) 03/29/23 02:06 Albumin 3.2 g/dL (3.5-5.2) L 03/29/23 02:06 Globulin 3.9 g/dL (1.3-4.6) 03/29/23 02:06 Lipase 75 U/L (13-60) H 03/24/23 13:25 TSH 3.14 uIU/mL (0.27-4.20) 03/24/23 13:25 Urine Color Basehor (Yellow) A 03/24/23 13:05 Urine Appearance Clear (CLEAR) 03/24/23 13:05 Urine pH 5 (5-7) 03/24/23 13:05 Ur Specific [place] 1.005 (1.005-1.030) 03/24/23 13:05 Urine Protein 1+ (Negative) H 03/24/23 13:05 Urine Glucose (UA) Norm (Normal) 03/24/23 13:05 Urine Ketones 1+ (Negative) H 03/24/23 13:05 Urine Blood Neg (Negative) 03/24/23 13:05 Urine Nitrate Positive (Negative) H 03/24/23 13:05 Urine Bilirubin 2+ (Negative) H 03/24/23 13:05 Urine Urobilinogen 4+ mg/dL (Negative) H 03/24/23 13:05 Ur Leukocyte Esterase Trace (Negative) H 03/24/23 13:05 Urine RBC 0-4 /hpf (0-2) H 03/24/23 13:05 Urine WBC 0-4 /hpf (0-5) H 03/24/23 13:05 Ur Squamous Epith Cells 0-4 /hpf (0-5) H 03/24/23 13:05 Amorphous Sediment Not Reportable 03/24/23 13:05 Urine Bacteria Trace /hpf (NONE) 03/24/23 13:05 Urine Mucus Trace /hpf 03/24/23 13:05 Vitals Last Vital Signs Temp 97.4 F L 03/29/23 08:27 Pulse 98 03/29/23 08:27 Resp 17 03/29/23 08:27 BP 127/75 03/29/23 08:27 Pulse Ox 92 03/29/23 08:27 O2 Del Method Room Air 03/29/23 08:27 Discharge Plan Discharge Patient Disposition: Home Condition: Stable Prescriptions: New potassium chloride 10 mEq tablet extended release 10 meq PO DAILY Qty: 90 1RF prednisone 10 mg tablet 10 mg PO DIRECTED Qty: 50 0RF Rx Instructions: see taper instructions Continued multivitamin Tablet 1 tab PO DAILY furosemide 40 mg Tablet 40 mg PO DAILY spironolactone 100 mg Tablet 100 mg PO DAILY midodrine 5 mg Tablet 5 mg PO BID Rx Instructions: do not give last dose of day after 6PM or within 4 hrs of bedtime folic acid 1 mg Tablet 1 mg PO QAM thiamine HCl (vitamin B1) 50 mg Tablet 50 mg PO DAILY oxycodone 5 mg Tablet 5 mg PO Q8H PRN (Reason: Pain) Changed lactulose 10 gram/15 mL Solution 15 ml PO BID Qty: 946 4RF Discharge Orders: Discharge Order (Routine); Ordered 03/29/23 Ordered By: Gagan Lopez Referrals: Gilda Culp MD [Referring] - 3 weeks Patient Instructions: Opioid Safety Activity Restrictions/Additional Instructions: Prednisone taper 40 mg for 5 days 30 mg for 5 days, 20 mg for 5 days 10 mg for 5 days then alternate days for 3 days and then stop Please follow-up with [facility] applied behavior specialist Dr. Eastman I have given you referral You may want to discuss liver transplant Discharge Attestations Time Spent in Discharge Care*: greater than 30 min Quality Metrics Clinical Quality Measures [ No reported AMI, CVA or VTE this stay] Coding Level of Care Code Acute Code for Chg Fwd Diagnoses Cirrhosis K74.60 Acute hepatic encephalopathy K76.82 Alcoholic hepatitis K70.10
[2023-03-29 11:49] VITALS: BP 122/72; RESP 89; TEMP 36.6; O2SAT 93
--- NOTE | 2023-03-29 12:39 | PC.NURSE ---
Report called to [facility].
[2023-03-29] MEDS: methylPREDNISolone sod succ 125 mg/2 mL INJ 80 MG IVP (13:20)
[2023-03-29 15:01] LABS: SARS Covid-2 Antigen negative (Negative)
[2023-03-29 15:54] VITALS: BP 122/72; RESP 89; TEMP 36.6; O2SAT 93
== END 2023-03-29 15:55 | disposition skilled nursing facility (03) | DRG 443 ==
LOC: ER 14:40 → MEDSURG 16:03
PROVIDERS: Admitting Provider Internal Medicine; Emergency Provider Emergency Medicine; Visit Provider Internal Medicine
DX: K76.82 Hepatic encephalopathy (principal); K70.31 Alcoholic cirrhosis of liver with ascites; F10.10 Alcohol abuse, uncomplicated; K70.11 Alcoholic hepatitis with ascites; Z11.52 Encounter for screening for COVID-19; Z91.148 Patient's other noncompliance with medication regimen for other reason
CPT/HCPCS: 36415; 74176; 76705; 80048; 80053; 80076; 81001; 82140; 83690; 83735; 84443; 85025; 85049; 85384; 85610; 85730; 87426; 93306; 96372; 97110; 97162; 97530; 99285; C9113; J0696; J1644; J2930; J7510; J7512; P9045

== ENCOUNTER 2023-07-06 12:50 | Outpatient (CLI) | payer MEDICAID, SELFPAY ==
--- NOTE | 2023-07-06 13:05 | XRR_ITS ---
PROCEDURE INFORMATION: Exam: XR Left Hip Exam date and time: 07/06/2023 1:13 PM Age: 53 years old Clinical indication: Hip pain; Left hip; Additional info: L hip osteoarthritis TECHNIQUE: Imaging protocol: Radiologic exam of the left hip. Views: 2 or 3 views hip with pelvis when performed. COMPARISON: CT abdomen pelvis wo con [id number] 03/25/2023 2:42 PM FINDINGS: Bones/joints: Severe degenerative osteoarthritis of the left hip again noted. Superolateral migration of the femur with respect to the acetabulum again seen. No acute fracture or dislocation.No significant soft tissue pathology. Soft tissues: See Bones/joints finding. XR/XR hip LT 2-3V wo/w pel* [id number] IMPRESSION: Severe left hip degenerative change again noted.
== END 2023-07-06 12:51 | disposition home or self-care (01) ==
PROVIDERS: PCP Family Medicine; Visit Provider Family Medicine
DX: M16.12 Unilateral primary osteoarthritis, left hip (principal)
CPT/HCPCS: 73502

== ENCOUNTER 2023-09-28 10:08 | Outpatient (CLI) | payer MEDICAID, SELFPAY ==
--- NOTE | 2023-09-28 10:13 | CT_ITS ---
WS: [id number] LDCT LUNG CANCER SCREENING TECHNIQUE: Noncontrast CT of the chest with coronal and sagittal reformatted images. CLINICAL INFORMATION: HX OF TOBACCO USE COMPARISON: None. DLP: 94.41 mGy.cm DIvol: Mean CTDIvol: 2.00 (mGy) All CT scans at [facility] use at least one of these dose optimization techniques: automat ed exposure control; mA and/or kV adjustment per patient size (includes targeted exams where dose is matched to clinical indication); or iterative reconstruction. FINDINGS: Both lungs are well aerated. No acute pulmonary infiltrates. No suspicious pulmonary parenc hymal abnormalities. Normal caliber thoracic aorta. Coronary calcification. No mediastinal or hilar lymphadenopathy. No ax illary lymphadenopathy. Mild thoracic curve. Mild thoracic kyphosis. Chronic anterior wedging in the midthoracic spine. Partially visualized fat-containing epigastric hernia. Partially visualized hepatomegaly. Few small n onspecific low-attenuation lesions in the liver. Adrenal glands are normal. Small esophageal hiatal hernia. CT/CT lung screening [id number] IMPRESSION: 2 or 3 small low-attenuation lesions in the liver partially visuali zed may represent hepatic cysts but too small to characterize. This can be foll owed up with contrast-enhanced CT abdomen pelvis with liver protocol. LUNG-RADS: 1S-Negative with Significant Findings FOLLOW UP: 12 Month: Continue annual screening with LDCT
== END 2023-09-28 10:09 | disposition home or self-care (01) ==
LOC: RAD 10:10
PROVIDERS: PCP Family Medicine; Visit Provider Family Medicine
DX: Z12.2 Encounter for screening for malignant neoplasm of respiratory organs (principal); Z87.891 Personal history of nicotine dependence; K44.9 Diaphragmatic hernia without obstruction or gangrene; R16.0 Hepatomegaly, not elsewhere classified; K43.9 Ventral hernia without obstruction or gangrene
CPT/HCPCS: 71271

== ENCOUNTER → 2023-10-08 10:02 | Outpatient (BNVA) | payer OTHER, MEDICAID, SELFPAY | PROVIDERS: PCP Family Medicine; Visit Provider Student in an Organized Health Care Education/Training Program | DX: M16.12 Unilateral primary osteoarthritis, left hip (principal) | CPT/HCPCS: 77002 ==

== ENCOUNTER 2024-01-05 12:00 | Outpatient (CLI) | payer MEDICAID, SELFPAY ==
--- NOTE | 2024-01-05 12:05 | CT_ITS ---
WS: [id number] CT ABDOMEN WITH AND WITHOUT CONTRAST HISTORY: Liver lesion seen on lung CT screening. Multiphase imaging through the abdomen with attention to the liver. Oral contrast has not been provid ed. Coronal and sagittal reformats are submitted. All CT scans at [facility] use at least one of these dose optimization techniques: automated exposure control; mA and/or kV adjustment per patie nt size (includes targeted exams where dose is matched to clinical indication); or iterative reconstr uction. IV CONTRAST: Omnipaque 350; 100 mL IV. Oral contrast: No DLP: 2175.66 mGy.cm COMPARISON: 03/25/2023, 09/28/2023 Lower thorax: Lung bases are clear. Heart is normal size. Small hiatal hernia. Liver/biliary system: Liver is normal size. Scattered low-attenuation masses throughout the liver. At least 5 hepatic masses are identified. These do not enhance. These are most consistent with simple c ysts. The largest cyst is adjacent to the gallbladder fossa measuring 11 mm. Gallbladder: Mildly contracted gallbladder with stones. Pancreas: Normal size pancreas and pancreatic duct. No adjacent inflammation. Spleen: Enlarged spleen measures 14.9 cm in length. Similar to the prior study. Adrenal glands: Normal. Right kidney: Normal. Left kidney: Normal. Aorta: Normal. Lymphadenopathy: None. Free fluid: None. GI tract: As visualized through the abdomen no obstruction. Abdominal wall: Multiple ventral abdominal wall hernias are identified. Supraumbilical hernia contain s fat only. At the level of the umbilicus multiple additional small hernias containing fat also. LEFT lateral abdominal wall spigelian hernia. Visualized osseous structures: Unremarkable. CT/CT abdomen wo/w con [id number] IMPRESSION: 1. Multiple low-attenuation masses in the liver do not enhance and are consist ent with hepatic cysts. No solid mass or metastatic disease. 2. Splenomegaly, 14.9 cm in length. 3. Multiple ventral abdominal wall hernias and a LEFT spigelian hernia.
[2024-01-05] MEDS: iohexol 350 mg/mL 500 mL Btl (per mL) IV (12:19)
== END 2024-01-05 12:03 | disposition home or self-care (01) ==
PROVIDERS: PCP Family Medicine; Visit Provider Family Medicine
DX: Q44.6 Cystic disease of liver (principal); K80.20 Calculus of gallbladder without cholecystitis without obstruction; R16.1 Splenomegaly, not elsewhere classified; K43.9 Ventral hernia without obstruction or gangrene; K43.6 Other and unspecified ventral hernia with obstruction, without gangrene
CPT/HCPCS: 74170

== ENCOUNTER 2024-02-10 06:51 | Day surgery (SDC) | payer MEDICAID, SELFPAY ==
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
[2024-02-10 07:24] VITALS: BP 154/98; PULSE 81; RESP 18; TEMP 36.5; O2SAT 94; BMI 34.8
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
[2024-02-10] MEDS: sodium chloride 0.9% 1,000 ML 30 ML IV (07:37)
[2024-02-10] MEDS: midazolam 1 mg/mL INJ 2 mL 2 MG IVP (07:42)
[2024-02-10] MEDS: ceFAZolin 2,000 mg SDV 2000 MG IVP (08:49)
--- NOTE | 2024-02-10 09:07 | ECG_ITS ---
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 Measurements Intervals [place] Rate: 67 P: 61 MI: 231 QRS: 68 QRSD: 169 T: 247 QT: 434 QTc: 460 Interpretive Statements SINUS RHYTHM WITH FIRST DEGREE AV BLOCK LEFT BUNDLE BRANCH BLOCK [120+ ms QRS DURATION, 80+ ms Q/S IN V1/V2, 85+ ms R IN I/aVL/V5/V6] No previous ECG available for comparison Electronically Signed On 02-10-2024 23:57:55 EAP CONSULTANT by Goyo Newberry M.D. [email or web address]
--- NOTE | 2024-02-10 09:35 | SUR.OPER ---
2 mg versed, 100mg 2% Lidocaine, 100mcg Fentanyl given by JOSE RAMOS EKG rhythm noted to have ST segment elevation greater than 2mm 5 lead applied and 12 lead ordered. Patient reports intermittent chest pain. Cardiology consulted case canceled.
[2024-02-10 09:38] LABS: ABG PCO2 40.4 mmHg (35-45); Base Excess ABG 0.4 mmol/L (-2.0-2.0); HCO3 ABG 25.2 mmol/L (22-26); PO2 ABG 81.6 mmHg (80.0-100.0); Potassium Level - ABG 3.9 mmol/L (3.5-5.0)
[2024-02-10 09:39] LABS: Arterial Blood Gas Hematocrit 47.8 % (42-52); Carboxyhemoglobin 3.1 %THgb (0.4-20.1); HGB O2 Sat 93.4 % (95-100); Ionized Calcium Level - ABG 1.2 mmol/L (1.1-1.4); Total Hemoglobin 15.6 g/dL (14-18)
[2024-02-10 09:40] LABS: Methemoglobin 0.7 % (0.4-1.5)
[2024-02-10 09:48] LABS: Alveolar-Arterial Oxygen Gradi 2.5 mmHg (5-10); Blood Gas Allen Test Pos; Blood Gas Sample Site Radial, right; Blood Gas Sample Type Arterial; PO2 FiO2 Ratio Arterial Blood 388
--- NOTE | 2024-02-10 10:00 | SUR.PHASEII ---
Instructed patient that he will be called by Dr. Lance clinic with follow up appointment for cardiac clearance. Patient was understanding of this and left ambulatory. PAtient's sister came to get him and updated on change in schedule for today.
--- NOTE | 2024-02-10 12:57 | PM.MISC ---
Miscellaneous Note Note: Patient was brought to OR and ST depression was noted on monitors. 12-lead EKG was obtained, which showed LBBB with no previous comparison. Patient's functional status is unknown d/t need for cane and he stated that he has had chest pains when under stress. D/t unknown questionable cardiac status and the complexity of this operation, decision was made to postpone until after further evaluation.
== END 2024-02-10 10:00 | disposition home or self-care (01) ==
PROVIDERS: Anesthesiology; PCP Family Medicine; Visit Provider Surgery
DX: K43.2 Incisional hernia without obstruction or gangrene (principal); Z53.8 Procedure and treatment not carried out for other reasons; Z87.891 Personal history of nicotine dependence
CPT/HCPCS: 36600; 80051; 82330; 82805; 93005; J0690; J1100; J2250; J2405; J2704; J3010; J3490; J7030

== ENCOUNTER 2024-05-10 10:16 | Outpatient (CLI) | payer OTHER, MEDICAID, SELFPAY ==
--- NOTE | 2024-05-10 10:26 | XRR_ITS ---
PROCEDURE INFORMATION: Exam: XR Chest Exam date and time: 05/10/2024 10:34 AM Age: 54 years old Clinical indication: Other: Chest wall asymmetry; Prior surgery; Surgery date: 6+ months; Surgery type: Partial colectomy TECHNIQUE: Imaging protocol: Radiologic exam of the chest. Views: 2 views. COMPARISON: No relevant prior studies available. FINDINGS: Lungs: Unremarkable. No consolidation. Pleural spaces: Unremarkable. No pleural effusion. No pneumothorax. Heart/Mediastinum: Unremarkable. No cardiomegaly. Bones/joints: Unremarkable. XR/XR chest 2V* [id number] IMPRESSION: No acute findings.
== END 2024-05-10 10:17 | disposition home or self-care (01) ==
PROVIDERS: PCP Family Medicine; Visit Provider Nurse Practitioner Family
DX: Q67.8 Other congenital deformities of chest (principal)
CPT/HCPCS: 71046

== ENCOUNTER 2024-05-11 10:18 | Emergency (ER) | payer OTHER, MEDICAID, SELFPAY ==
[2024-05-11 10:30] VITALS: BP 178/95; PULSE 76; RESP 18; TEMP 36.4; O2SAT 99; BMI 32.5
--- NOTE | 2024-05-11 10:42 | XR_ITS ---
WS: [id number] Portable AP upright chest, 05/11/2024 Clinical Data: palpitations Comparison: Two-view chest, 05/10/2024 Findings: No nodules, masses or effusions are seen. The heart is normal. The pulmonary vascularity is not increased. No pneumonia or pneumothorax is seen. XR/XR chest 1V portable [id number] Impression: Negative chest.
--- NOTE | 2024-05-11 10:43 | ECG_ITS ---
[facility]: [facility]11 Pat Name: Mariano Polanco Department: Room: Gender: Male Men'S Furnishings Salesperson: : 1970 Requested By: Dick Douglas Order Number: [id number] Regina MD: Shiraz Rodriguez M.D. Measurements Intervals [place] Rate: 73 P: 58 [place]: 202 QRS: 55 QRSD: 161 T: 210 QT: 408 QTc: 452 Interpretive Statements SINUS RHYTHM WITH OCCASIONAL VENTRICULAR PREMATURE COMPLEXES LEFT BUNDLE BRANCH BLOCK [120+ ms QRS DURATION, 80+ ms Q/S IN V1/V2, 85+ ms R IN I/aVL/V5/V6] Compared to ECG 02/10/2024 09:07:25 Ventricular premature complex(es) now present First degree AV block no longer present Electronically Signed On 05-13-2024 07:43:52 CDT by Shiraz Rodriguez M.D. [id number]
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
[2024-05-11 10:57] VITALS: BP 148/105; O2SAT 99
[2024-05-11 11:00] LABS: Basophils # 0.1 10^3/uL (0.0-0.1); Basophils % 0.7 %; Eosinophils # 0.1 10^3/uL (0.0-0.8); Eosinophils % 1.3 %; Hematocrit 46.8 % (37-53); Lymphocytes # 1.1 10^3/uL (0.8-4.8); Lymphocytes % 16.1 %; Mean Corpuscular HGB Conc 34.4 g/dL (30-55); Mean Corpuscular Hemoglobin 30.8 pg (27-33); Mean Corpuscular Volume 89.5 fl (82-101); Mean Platelet Volume 9.5 fL (7.4-10.4); Monocytes # 0.4 10^3/uL (0.2-0.9); Monocytes % 5.9 %; Neutrophils # 5.13 10^3/uL (1.8-7.7); Neutrophils % 75.9 %; Nucleated Red Blood Cells % 0 %; Platelet Count 144 10^3/cmm (157-399); Red Blood Count 5.23 10^6/uL (3.85-5.65); Red Cell Distribution Width 13.8 % (12.1-15.1); White Blood Count 6.77 10^3/uL (3.29-11.43)
[2024-05-11 11:09] VITALS: BP 144/92; O2SAT 97
[2024-05-11 11:22] LABS: Troponin(5th) Baseline 8 ng/L (0-15)
[2024-05-11 11:29] LABS: Alanine Aminotransferase 23 U/L (0-41); Albumin Level 4.5 g/dL (3.5-5.2); Alkaline Phosphatase 59 U/L (40-130); Aspartate Amino Transferase 18 U/L (0-40); Blood Urea Nitrogen 11 mg/dL (6-20); Calcium 9.1 mg/dL (8.5-10.5); Carbon Dioxide 22 mmol/L (22-29); Chloride 105 mmol/L (98-107); Creatinine Clr Calc Pharmacy 174.0998; Globulin 2.4 g/dL (1.3-4.6); Glomerular Filtration Rate 140.4 mL/min (90-130); Glucose 129 mg/dL (65-115); Osmolality Calculated 291 mOsm/kg (285-295); Sodium 140 mmol/L (136-145); Thyroid Stimulating Hormone 0.56 uIU/mL (0.27-4.20); Total Bilirubin 0.8 mg/dL (0.15-1.2); Total Protein 6.9 g/dL (6.6-8.7)
[2024-05-11 11:32] VITALS: BP 152/98; O2SAT 98
== END 2024-05-11 12:43 | disposition home or self-care (01) ==
PROVIDERS: Emergency Provider Student in an Organized Health Care Education/Training Program; PCP Family Medicine
DX: R07.89 Other chest pain (principal); F43.9 Reaction to severe stress, unspecified; Z87.891 Personal history of nicotine dependence
CPT/HCPCS: 36415; 71045; 80053; 83735; 84443; 84484; 85025; 93005; 99285

== ENCOUNTER 2024-07-04 08:33 | Outpatient (CLI) | payer MEDICAID, SELFPAY ==
--- NOTE | 2024-07-04 08:45 | USCV_ITS ---
Mariano Polanco Age: 54 Gender: M : 1970 Exam Date: 07/04/2024 08:54 Ordering Phys: Shiraz Rodriguez M.D ([email or web address]) Technologist: DEBBI Exam Location: [facility] [place] Indication: SoB BP: 140 / 90 HR: 75 Rhythm: Sinus Technical Quality: Adequate MEASUREMENTS (Male / Female) Normal Values 2D ECHO LV Diastolic Diameter PLAX 4.8 cm 4.2 - 5.9 / 3.9 - 5.3 cm IVS Diastolic Thickness 0.8 cm 0.6 - 1.0 / 0.6 - 0.9 cm IVS Systolic Thickness 1.5 cm LVPW Diastolic Thickness 0.9 cm 0.6 - 1.0 / 0.6 - 0.9 cm LVPW Systolic Thickness 1.3 cm LVOT Diameter 2.0 cm LV Ejection Fraction 2D Teich 58.8 % LV Ejection Fraction MOD 4C 56.2 % LV Ejection Fraction MOD 2C 59.7 % LV Ejection Fraction 2C AL 62.1 % LA Diameter 4.0 cm RA Systolic Volume 4C AL 37.1 ml RA Systolic Volume 4C MOD 36.2 ml LA Sys Volume AL 65.9 cm cubed LA Sys Volume Index AL 27.5 cm cubed/m squared Aorta at Sinotubular Diameter 2.9 cm IVC Diameter 1.7 cm M-MODE LA Ao Ratio MM 1.5 AV Cusp Separation MM 1.5 cm DOPPLER AV Peak Velocity 185.0 cm/s LVOT Peak Velocity 88.0 cm/s AV Area Cont Eq vti 1.5 cm squared AV Area Cont Eq pk 1.5 cm squared MV Peak Velocity 113.0 cm/s MV Area PHT 7.1 cm squared Mitral E to A Ratio 0.7 TV Peak E Velocity 63.0 cm/s PV Peak Velocity 117.0 cm/s FINDINGS Left Ventricle Technically limited quality echocardiogram because of poor ultrasonic windows. LV systolic function is normal with EF of 55-60%. No regional wall motion abnormalities are seen. Grade 1 diastolic dysfunction. Right Ventricle Normal in size and function Right Atrium Normal in size Left Atrium Dilated Mitral Valve Structurally normal mitral valve. Trace mitral regurgitation. Aortic Valve Structurally normal aortic valve. No significant stenosis or regurgitation Tricuspid Valve Insufficient TR jet to calculate RVSP. Pulmonic Valve Not well visualized Pericardium Normal Aorta Normal in size IVC Appears to be normal CONCLUSIONS Technically limited quality echocardiogram because of poor ultrasonic windows. LV systolic function is normal with EF of 55-60%. Grade 1 diastolic dysfunction. Left atrial dilation Trace mitral regurgitation Compared to prior echocardiogram from 2023, no significant changes are seen. Shiraz Rodriguez MD (Electronically Signed) Final Date: 09 Jul 2024 14:39 S
== END 2024-07-04 08:34 | disposition home or self-care (01) ==
LOC: RAD 08:35
PROVIDERS: PCP Family Medicine; Visit Provider Internal Medicine
DX: R06.02 Shortness of breath (principal); R93.1 Abnormal findings on diagnostic imaging of heart and coronary circulation; I51.7 Cardiomegaly
CPT/HCPCS: 93306

== ENCOUNTER 2024-07-21 07:34 | Outpatient (CLI) | payer MEDICAID, SELFPAY ==
--- NOTE | 2024-07-21 08:06 | ECG_ITS ---
[facility] Test Date: 2024-07-21 Pat Name: Mariano Polanco Department: Room: Gender: Male Complaint Operator: : 1970 Requested By: Shiraz Rodriguez Order Number: [id number] Regina MD: VIANEY LANGE Interpretive Statements Lung unchanged pre/post procedure; Intraprocedure shortess of breath; Symptoms resoled by discharge NOTE: Please note that this is the electrocardiogram portion of the Lexiscan/Sestamibi stress test. The perfusion scan will be documented separately. DATA: Baseline heart rate was 67 beats per minute. Baseline blood pressure was 155/95 millimeters of mercury. Target heart rate was 166. Maximum heart rate achieved was 99. which was 59% of the predicted target heart rate. Maximum blood pressure was 174/101 millimeters of mercury. The reason for ending the test was completion of the protocol. The patient did not experience any symptoms. ELECTROCARDIOGRAM: BASELINE: Sinus rhythm. Normal axis. Left bundle branch block. EXERCISE: After Lexiscan injection, no ST-T changes suggestive of ischemic noted. No arrhythmia noted. CONCLUSION: Please note due to baseline abnormality of the EKG specificity and sensitivity of the EKG portion of LexiScan MIBI stress test will be low 1. EKG not suggestive of ischemia 2. Lexiscan injection unremarkable. 3. Perfusion scan will be documented separately. Electronically Signed On 07-29-2024 23:34:14 CDT by VIANEY LANGE [email or web address]
--- NOTE | 2024-07-21 08:06 | NMCV_ITS ---
NM consuelo perf SPECT r/s* [id number] Mariano Polanco Age: 54 Gender: M : 1970 Exam Date: 07/21/2024 08:50 Ordering Phys: Shiraz Rodriguez M.D ([email or web address]) Technologist: LAURITA Schneider Exam Location: [facility] Indications: cp STRESS TEST Please see separate stress test report in [facility] for full findings IMAGE PROTOCOL Rest/Stress 1 Lexiscan Day Radiopharmaceutical Dose (mCi) Administration Site Administered by Rest: Tc-99m 10.4 IV LAURITA Schneider Sestamibi Stress:Tc-99m 32.9 IV Zoe Eckert, PAYROLL EXAMINER Sestamibi Rest: 21-Jul-2024 60 Discovery 630 Stress: 21-Jul-2024 30 Discovery 630 0.4mg Lexiscan. Supine position only as patient was unable to lay prone. Patient stated he had four hernia's and was not going to do prone imaging. SPECT RESULTS Technical Quality: Good Raw Data Analysis: Normal Image Corrections: No attenuation or motion correction applied Summed Stress Score: 12 Summed Rest Score: 23 Summed Difference Score: 0 PERFUSION FINDINGS Large area of fixed perfusion defect noted in basal distal inferior and inferolateral wall suggestive of old myocardial infarction versus scar FUNCTIONAL RESULTS (calculated via Gated SPECT) Stress Image LV EF (%): 49 Stress EDV (mL):154 TID: 0.95 Stress ESV (mL):79 FUNCTIONAL FINDINGS: Inferior wall akinesis IMPRESSIONS Large area of fixed perfusion defect noted in basal to distal inferior and inferolateral wall suggestive of old myocardial infarction versus scarring . No ischemia noted. Gagan Snow MD (Electronically Signed) Final Date: 28 July 2024 19:17 S
[2024-07-21 08:07] VITALS: BMI 34.8
[2024-07-21] MEDS: regadenoson 0.4 Mg/5 ml Syringe IVP (09:21)
[2024-07-21 09:35] VITALS: BP 160/100; PULSE 73
== END 2024-07-21 07:35 | disposition home or self-care (01) ==
PROVIDERS: PCP Family Medicine; Visit Provider Internal Medicine
DX: R07.9 Chest pain, unspecified (principal); R93.1 Abnormal findings on diagnostic imaging of heart and coronary circulation
CPT/HCPCS: 36415; 78452; 93017; 96374; A9500; J2785

== ENCOUNTER → 2024-08-16 13:33 | Outpatient (BNVA) | payer MEDICAID, SELFPAY | PROVIDERS: PCP Family Medicine; Visit Provider Internal Medicine | DX: R07.9 Chest pain, unspecified (principal); I44.7 Left bundle-branch block, unspecified | CPT/HCPCS: 99214 ==

== ENCOUNTER → 2024-12-18 12:47 | Outpatient (BNVA) | payer MEDICAID, SELFPAY | PROVIDERS: PCP Family Medicine; Referring Provider Family Medicine; Visit Provider Internal Medicine Cardiovascular Disease | DX: R00.2 Palpitations (principal); I49.8 Other specified cardiac arrhythmias; I49.3 Ventricular premature depolarization; I49.1 Atrial premature depolarization; I47.10 Supraventricular tachycardia, unspecified | CPT/HCPCS: 93242 ==

== ENCOUNTER → 2024-12-20 10:42 | Outpatient (BNVA) | payer MEDICAID, SELFPAY | PROVIDERS: PCP Family Medicine; Visit Provider Student in an Organized Health Care Education/Training Program | DX: K46.9 Unspecified abdominal hernia without obstruction or gangrene (principal); R03.0 Elevated blood-pressure reading, without diagnosis of hypertension | CPT/HCPCS: 99214 ==